=== PATIENT | female | born 1955 | race Caucasian/White ===

== ENCOUNTER 2020-09-16 06:15 | Day surgery (SDC) | payer OTHER ==
[~2020-09-16] VITALS: Ht 157.5 cm; Wt 72.1 kg
[~2020-09-16 06:15] MED LIST: ALBU90OI INH; ALEN70 PO; ASPI325EC PO; BREO ELLIPTA 11 EAC1 INH; CONEST.625; CYCL10 PO; FLUSAL2505 INH; GABA300 PO; Gabapentin600 MG PO; MYRBETRIQ25 MG PO; OMEP20ER PO; OXYACE5T PO; PROG100 PO; ROXICODONE5 MG PO; SERT100 PO; SOLI5 PO; TOLT4 PO; TRAZ50 PO; ZOLOFT100 MG PO
--- NOTE | 2020-09-16 06:47 | NUR ---
Patient up to Ambulate independently. Gait steady. Henri Paws warming gown applied. History, Chart, Medications and Allergies reviewed before start of procedure.Lungs clear T/O to Auscultation. Patient confirms NPO status and agrees with scheduled surgery. Pre-Op teaching done. Pt verbalizes understanding. Patient States Post-Procedure ride home has been arranged. Patient reports completing Chlorhexadine shower X2 prior to admission to hospital.
--- NOTE | 2020-09-16 09:06 | NUR ---
Patient up to Ambulate independently. Gait steady. Discharge instructions reviewed with patient. Patient verbalizes understanding. Copy given to patient to take home.Lungs clear T/O to Auscultation. Patient States Post-Procedure ride home has been arranged. Discharged via wheelchair to private car for ride home.
== END 2020-09-16 09:15 | disposition home or self-care (01) ==
LOC: ORSCMMR 06:15 → ORD 06:15 → ORSCMMR 06:19 → ORD 07:30
PROVIDERS: Orthopaedic Surgery
PROC: 01N50ZZ Release Median Nerve, Open Approach (ICD-10-PCS; principal; 2020-09-16 07:30)
DX: G56.02 Carpal tunnel syndrome, left upper limb (principal); J45.909 Unspecified asthma, uncomplicated; Z79.899 Other long term (current) drug therapy; F41.8 Other specified anxiety disorders; F17.210 Nicotine dependence, cigarettes, uncomplicated
CPT/HCPCS: A9270; J0690; J1100; J1885; J2370; J2405; J2704; J3010; J7120

== ENCOUNTER 2020-10-17 06:18 | Day surgery (SDC) | payer OTHER ==
[~2020-10-17] VITALS: Ht 157.5 cm; Wt 72.4 kg
--- NOTE | 2020-10-17 07:06 | NUR ---
10/17/20 0706 Carolynn Gutierrez BUPIVACAINE 0.5% MIXED W/ LIDOCAINE 1% 1:100,000 1:1 PER ORDER FOR INJECTION AT OPSITE BY DR CARRILLO. MULTI DOSE VIALS. MEDICATION DIVIDED & MIXED IN ROOM BY MICHELLE.
== END 2020-10-17 08:53 | disposition home or self-care (01) ==
LOC: ORSCSDS 06:18
PROVIDERS: Orthopaedic Surgery
PROC: 0LB50ZZ Excision of Right Lower Arm and Wrist Tendon, Open Approach (ICD-10-PCS; principal; 2020-10-17 07:30)
PROC: 01N50ZZ Release Median Nerve, Open Approach (ICD-10-PCS; principal; 2020-10-17 07:30)
DX: G56.01 Carpal tunnel syndrome, right upper limb (principal); M67.431 Ganglion, right wrist; I10 Essential (primary) hypertension; F17.210 Nicotine dependence, cigarettes, uncomplicated; J45.909 Unspecified asthma, uncomplicated; Z79.899 Other long term (current) drug therapy
CPT/HCPCS: J0690; J2250; J2704; J3010